=== PATIENT | male | born 1940 | race Caucasian/White ===

== ENCOUNTER 2022-11-23 20:09 | Emergency (ER) | payer BC | END 2022-11-23 22:00 | disposition home or self-care (01) | LOC: ERS 20:09 | DX: R07.89 Other chest pain (principal); E03.9 Hypothyroidism, unspecified; I10 Essential (primary) hypertension; E78.5 Hyperlipidemia, unspecified; Z79.899 Other long term (current) drug therapy; W18.09XA Striking against other object with subsequent fall, initial encounter | CPT/HCPCS: 71045; 93005 ==